=== PATIENT | male | born 1935 | race Caucasian/White ===

== ENCOUNTER → 2018-06-08 | Outpatient (CLI) | payer MEDICARE ==
--- NOTE | 2018-06-09 15:59 | HOLTMON ---
[facility] Test Date: 2018-06-08 Pat Name: WILBER NICOLE Department: Room: - Gender: [employer]: Tiffanie Recio/RASHI LYNNE : 1935 Requested By: Other CDS - complete info on Order Number: [id number] Reading MD: Efra Quinonez Interpretive Statements Predominantly sinus rhythm with heart rates ranging from 53 bpm up to 137 bpmWith average heart rate of 80 bpm.Very frequent PACs (13,038) including a few atrial couplets, 3 atrial runs, atrial bigeminy, and atrial trigeminy. The longest And fastest atrial run was 3 beats At 146 bpm. Rare isolated PVCs. No complex ventricular ectopy or ventricular tachycardia. No episodes of atrial fibrillation. No symptoms were noted. Electronically Signed On 06-09-2018 15:58:57 EDT by Efra Quinonez
== END ==
LOC: M EKG 11:16
DX: I49.1 Atrial premature depolarization (principal)